=== PATIENT | male | born 1975 | race Two or more races ===

== ENCOUNTER 2023-01-31 02:17 | Emergency (ER) | payer MEDICAID, OTHER ==
[~2023-01-31] VITALS: Ht 165.1 cm; Wt 193.3 kg
[2023-01-31] MEDS ORDERED: LIDOCAINE 1% HCL (LOCAL ANESTH.) INJ 20ML MDV IJ ONE (04:30)
[2023-01-31] MEDS ORDERED: SULF400T11 PO (04:40)
[2023-01-31 04:47] VITALS: BP 145/89
== END 2023-01-31 04:40 | disposition home or self-care (01) ==
LOC: ER 02:17
DX: L03.317 Cellulitis of buttock (principal); E11.9 Type 2 diabetes mellitus without complications; I10 Essential (primary) hypertension; Z88.2 Allergy status to sulfonamides
CPT/HCPCS: 10060; 82962; 99283; J2001

== ENCOUNTER 2023-04-04 21:07 | Inpatient (IN) | payer MEDICAID ==
[~2023-04-04] VITALS: Ht 165.1 cm; Wt 189.0 kg
[~2023-04-04 21:07] MED LIST: SULF400T11 PO
[2023-04-04] MEDS ORDERED: MECLIZINE HCL 25 MG TAB PO ONE (22:15)
[2023-04-04 22:50] LABS: Basophils # (auto) 0.1 10 ^3/uL (0-0.2); Basophils % (auto) 1.1 % (0.0-2.0); Eosinophils # (auto) 0.2 10 ^3/uL (0-0.8); Eosinophils % (auto) 2.1 % (0.0-7.0); Hematocrit 38.7 % (41.0-53.0); Hemoglobin 13.3 g/dL (13.5-17.5); Lymphocytes # (auto) 2.6 10 ^3/uL (0.4-5.4); Lymphocytes % (auto) 25.2 % (10.0-50.0); Mean Corpuscular Hemoglobin 31.4 pg (28.0-32.0); Mean Corpuscular Hgb Conc. 34.3 g/dL (32.0-36.0); Mean Corpuscular Volume 91.6 fL (80.0-100.0); Monocytes # (auto) 0.4 10 ^3/uL (0-1.3); Neutrophils % (auto) 67.6 % (37.0-80.0); Nucleated Red Blood Cells % 0.1 %; Red Blood Cells 4.23 10^6/uL (4.5-5.90); Red Cell Distribution Width 14.1 % (11.8-14.3); White Blood Cell 10.4 10^3/uL (4.4-10.8)
[2023-04-04 23:00] LABS: Albumin 2.9 g/dL (3.4-5.0); BUN/Creatinine Ratio 22.2 (10.0-20.0); Calcium 9.4 mg/dL (8.5-10.1); Magnesium 1.9 mg/dL (1.6-2.6)
[2023-04-04 23:01] LABS: Urine Bacteria NONE SEEN /hpf (None Seen); Urine Blood Negative /uL (Negative); Urine Mucus FEW (None Seen); Urine Specific Gravity 1.019 (1.001-1.035); Urine WBC <1 /hpf (0 - 3)
[2023-04-04 23:04] LABS: Bilirubin, Total 0.4 mg/dL (0.2-1.0); Total Protein 7.6 g/dL (6.4-8.2)
[2023-04-04 23:22] LABS: Alcohol, Urine < 3.0 mg/dL (0-10); Amphetamine Screen, Urine NEGATIVE (NEGATIVE); Barbiturate Scree,Urine NEGATIVE (NEGATIVE); Benzodiazephine Screen, Urine NEGATIVE (NEGATIVE); Cannabinoid Screen, Urine NEGATIVE (NEGATIVE); Cocaine Screen, Urine NEGATIVE (NEGATIVE); Opiate Scree,Urine NEGATIVE (NEGATIVE); Phencyclidine Screen, Urine NEGATIVE (NEGATIVE)
[2023-04-05] MEDS ORDERED: HYDROcodone-ACET 5/325MG TAB PO PRN (03:00)
[2023-04-05] MEDS ORDERED: NITROGLYCERIN 0.4 MG SL TAB SL PRN (03:00)
[2023-04-05] MEDS ORDERED: DOCUSATE SOD 100 MG CAP PO PRN (03:00)
[2023-04-05] MEDS ORDERED: MORPHINE SULFATE INJ 2 MG/ml SYRG IV PRN (03:00)
[2023-04-05] MEDS ORDERED: ACETAMINOPHEN 325 MG TAB PO PRN (03:00)
[2023-04-05] MEDS ORDERED: DEXTROSE (50%) 50ML SYRG IV PRN (03:00)
[2023-04-05] MEDS ORDERED: ONDANSETRON HCL 4 MG/2 ML VIAL IV PRN (03:00)
[2023-04-05] MEDS ORDERED: MECLIZINE HCL 25 MG TAB PO PRN (03:00)
[2023-04-05] MEDS: SODIUM CHLORIDE 0.9% 1,000 ML IV SCH ×2 (04:25→20:14)
[2023-04-05 05:21] LABS: Basophils # (auto) 0.1 10 ^3/uL (0-0.2); Basophils % (auto) 0.9 % (0.0-2.0); Eosinophils # (auto) 0.2 10 ^3/uL (0-0.8); Eosinophils % (auto) 2.3 % (0.0-7.0); Hematocrit 39.7 % (41.0-53.0); Hemoglobin 13.4 g/dL (13.5-17.5); Lymphocytes # (auto) 2.6 10 ^3/uL (0.4-5.4); Lymphocytes % (auto) 27.7 % (10.0-50.0); Mean Corpuscular Hemoglobin 30.9 pg (28.0-32.0); Mean Corpuscular Hgb Conc. 33.7 g/dL (32.0-36.0); Mean Corpuscular Volume 91.8 fL (80.0-100.0); Monocytes # (auto) 0.5 10 ^3/uL (0-1.3); Monocytes % (auto) 4.8 % (0.0-12.0); Neutrophils # (auto) 6.1 10 ^3/uL (1.6-8.6); Neutrophils % (auto) 64.3 % (37.0-80.0); Nucleated Red Blood Cells % 0.2 %; Red Blood Cells 4.32 10^6/uL (4.5-5.90); Red Cell Distribution Width 13.7 % (11.8-14.3); White Blood Cell 9.5 10^3/uL (4.4-10.8)
[2023-04-05 05:35] LABS: Albumin 2.9 g/dL (3.4-5.0); Potassium 4.1 mmol/L (3.5-5.1)
[2023-04-05 05:40] LABS: BUN/Creatinine Ratio 23.4 (10.0-20.0); Bilirubin, Total 0.4 mg/dL (0.2-1.0); Total Protein 7.2 g/dL (6.4-8.2)
[2023-04-05] MEDS: InsuLIN REG 1unit/0.01ml Soln (100units/ml) SC SCH ×4 (07:00→22:00)
[2023-04-05] MEDS: ACCU-CHEK COMFORT CURVE STRIP VI SCH ×4 (07:29→21:55)
[2023-04-05] MEDS: ASPirin 81 mg TAB PO SCH (09:54)
[2023-04-06] VITALS (8 sets, daily range): BP systolic 126–142; BP diastolic 57–68
[2023-04-06 05:29] LABS: Basophils # (auto) 0 10 ^3/uL (0-0.2); Basophils % (auto) 0.4 % (0.0-2.0); Eosinophils # (auto) 0.2 10 ^3/uL (0-0.8); Eosinophils % (auto) 2.4 % (0.0-7.0); Hematocrit 37.8 % (41.0-53.0); Hemoglobin 12.8 g/dL (13.5-17.5); Lymphocytes # (auto) 2.5 10 ^3/uL (0.4-5.4); Mean Corpuscular Hemoglobin 31.2 pg (28.0-32.0); Mean Corpuscular Hgb Conc. 33.8 g/dL (32.0-36.0); Mean Corpuscular Volume 92.4 fL (80.0-100.0); Monocytes # (auto) 0.4 10 ^3/uL (0-1.3); Monocytes % (auto) 4.4 % (0.0-12.0); Neutrophils # (auto) 6.2 10 ^3/uL (1.6-8.6); Neutrophils % (auto) 65.8 % (37.0-80.0); Nucleated Red Blood Cells % 0.2 %; Red Blood Cells 4.09 10^6/uL (4.5-5.90); Red Cell Distribution Width 13.8 % (11.8-14.3); White Blood Cell 9.4 10^3/uL (4.4-10.8)
[2023-04-06 05:33] LABS: Calcium 8.1 mg/dL (8.5-10.1); Potassium 4.3 mmol/L (3.5-5.1)
[2023-04-06 05:37] LABS: BUN/Creatinine Ratio 22.7 (10.0-20.0); Bilirubin, Total 0.6 mg/dL (0.2-1.0); Total Protein 6.5 g/dL (6.4-8.2)
[2023-04-06] MEDS: InsuLIN REG 1unit/0.01ml Soln (100units/ml) SC SCH ×4 (06:28→22:00)
[2023-04-06] MEDS: ACCU-CHEK COMFORT CURVE STRIP VI SCH ×4 (06:28→22:21)
[2023-04-06] MEDS: ASPirin 81 mg TAB PO SCH (08:54)
[2023-04-06] MEDS ORDERED: OPTISON 3ml Vial for INJ IV ONE (11:04)
[2023-04-06] MEDS: SODIUM CHLORIDE 0.9% 1,000 ML IV SCH (12:07)
[2023-04-07 05:00] VITALS: BP 137/69
[2023-04-07] MEDS: ACCU-CHEK COMFORT CURVE STRIP VI SCH ×3 (06:28→16:33)
[2023-04-07] MEDS: InsuLIN REG 1unit/0.01ml Soln (100units/ml) SC SCH ×3 (06:39→16:33)
[2023-04-07 08:00] VITALS: BP 130/52
[2023-04-07 09:00] VITALS: BP 149/65
[2023-04-07] MEDS: ASPirin 81 mg TAB PO SCH (09:30)
[2023-04-07 13:00] VITALS: BP_SYST 130; BP_SYST 139; BP_DIAS 52; BP_DIAS 61
[2023-04-07 15:47] VITALS: BP 130/52
== END 2023-04-07 17:00 | disposition home or self-care (01) | DRG 204 ==
LOC: ER 21:07 → TELE 04-05 03:03 → TELE-EAST 04-05 22:49
PROVIDERS: ADMIT Nurse Practitioner Family; ATTEND Internal Medicine Geriatric Medicine
DX: I95.1 Orthostatic hypotension (principal); E44.0 Moderate protein-calorie malnutrition; E88.09 Other disorders of plasma-protein metabolism, not elsewhere classified; Z68.44 Body mass index [BMI] 60.0-69.9, adult; D64.9 Anemia, unspecified; E11.65 Type 2 diabetes mellitus with hyperglycemia; F41.9 Anxiety disorder, unspecified; I10 Essential (primary) hypertension; R26.81 Unsteadiness on feet; E66.01 Morbid (severe) obesity due to excess calories; Z82.49 Family history of ischemic heart disease and other diseases of the circulatory system
CPT/HCPCS: 36415; 70450; 70551; 71045; 80053; 80307; 81001; 82962; 83735; 84484; 85025; 93005; 93306; 93886; 97116; 97163; 97530; G0378; J1815; Q9956

== ENCOUNTER 2023-08-20 15:14 | Emergency (ER) | payer MEDICAID ==
[~2023-08-20] VITALS: Ht 165.1 cm; Wt 182.3 kg
[2023-08-20 16:20] LABS: Basophils # (auto) 0.1 10 ^3/uL (0-0.2); Basophils % (auto) 0.6 % (0.0-2.0); Eosinophils # (auto) 0.2 10 ^3/uL (0-0.8); Eosinophils % (auto) 1.7 % (0.0-7.0); Hematocrit 41.8 % (41.0-53.0); Hemoglobin 13.9 g/dL (13.5-17.5); Lymphocytes # (auto) 2.4 10 ^3/uL (0.4-5.4); Lymphocytes % (auto) 22.6 % (10.0-50.0); Mean Corpuscular Hemoglobin 31.2 pg (28.0-32.0); Mean Corpuscular Hgb Conc. 33.2 g/dL (32.0-36.0); Mean Corpuscular Volume 94.2 fL (80.0-100.0); Monocytes # (auto) 0.5 10 ^3/uL (0-1.3); Monocytes % (auto) 4.4 % (0.0-12.0); Neutrophils # (auto) 7.4 10 ^3/uL (1.6-8.6); Neutrophils % (auto) 70.7 % (37.0-80.0); Red Blood Cells 4.44 10^6/uL (4.5-5.90); White Blood Cell 10.5 10^3/uL (4.4-10.8)
[2023-08-20 16:38] LABS: Alanine Aminotransferase 15 U/L (7-40); Albumin 4.1 g/dL (3.2-4.8); Alkaline Phosphatase 71 U/L (46-116); Anion Gap 7 (5-15); Aspartate Aminotransferase 21 U/L (13-40); BUN/Creatinine Ratio 14.2 (10.0-20.0); Blood Urea Nitrogen 15 mg/dL (9-23); Calcium 9.2 mg/dL (8.7-10.4); Carbon Dioxide 27 mmol/L (20-30); Chloride 102 mmol/L (98-107); Glucose 141 mg/dL (74-106); Potassium 4.7 mmol/L (3.5-5.1); Sodium 136 mmol/L (136-145)
[2023-08-20 16:39] LABS: Bilirubin, Total 0.5 mg/dL (0.2-1.0); Total Protein 7.1 g/dL (5.7-8.2)
[2023-08-20 18:08] LABS: Urine Bacteria NONE SEEN /hpf (None Seen); Urine Blood Negative /uL (Negative); Urine Clarity Clear (Clear); Urine Color Yellow (Yellow); Urine Mucus FEW (None Seen); Urine Protein, UAD TRACE (Negative); Urine Specific Gravity 1.028 (1.001-1.035); Urine Urobilinogen Normal (Negative); Urine WBC 1 /hpf (0 - 3); Urine pH 5.5 (5.0-8.0)
[2023-08-20] MEDS ORDERED: MECL25CH85 PO (18:23)
[2023-08-20 19:03] VITALS: BP 112/97; PULSE 83; RESP 20; TEMP 98.4; O2SAT 97
== END 2023-08-20 19:06 | disposition home or self-care (01) ==
LOC: ER 15:14
DX: H81.12 Benign paroxysmal vertigo, left ear (principal); I95.89 Other hypotension; R20.0 Anesthesia of skin; E11.9 Type 2 diabetes mellitus without complications; I10 Essential (primary) hypertension; E78.5 Hyperlipidemia, unspecified
CPT/HCPCS: 36415; 71046; 80053; 81001; 82962; 84484; 85025; 93005